=== PATIENT | male | born 1930 | race Caucasian/White ===

== ENCOUNTER 2016-11-26 12:26 | Day surgery (SDC) | payer MEDICARE, OTHER ==
[~2016-11-26] VITALS: Ht 177.8 cm; Wt 68.0 kg
[~2016-11-26 12:26] MED LIST: ASPI-973 PO; CA C1TAB29 PO; CALC600T12 PO; FINA5TAB9 PO; LISI-567 PO; PHN100C PO; Sodium Biphos-Phos 133 mL Enema RECTAL PRN; Sodium Chloride LOK Flush 10 mL Syringe IV PRN; fentaNYL-PF 50 mCg/mL 2 mL Inj IVPUSH PRN
[2016-11-26 12:54] VITALS: BP 151/77; PULSE 78; RESP 16; O2SAT 96
[2016-11-26] MEDS: 0.9% Sodium Chloride 1,000 ML IV SCH ×2 (13:09→13:20)
[2016-11-26 14:04] VITALS: BP 119/69; PULSE 67; RESP 15; O2SAT 97
[2016-11-26 14:12] VITALS: BP 114/65; PULSE 66; RESP 15; O2SAT 98
[2016-11-26 14:22] VITALS: BP 113/67; PULSE 68; RESP 15; O2SAT 94
--- NOTE | 2016-11-26 21:54 | ENDO ---
[address] [address] ENDOSCOPY PROCEDURE PATIENT: EVE SAWYER : 1930 MR#: [id number] ADMIT: 11/26/2016 JOB ID: [id number] DATE: 11/26/2016 PREPROCEDURE DIAGNOSIS: Right colon diffuse large B-cell lymphoma. POSTPROCEDURE DIAGNOSES: 1. Right colon diffuse large B-cell lymphoma, stenosis of the terminal ileal orifice. 2. Left-sided diverticulosis. PROCEDURE: 1. Colonoscopy with biopsies. 2. Attempted terminal ileoscopy. ENDOSCOPIST: Dr. Elliot Rowland. 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 He was treated with chemotherapy alone with a good clinical response. His most recent CT scan of the abdomen and pelvis in July 2016 shows some thickening of the terminal ileum which is new. No other new masses were seen or appreciated. He is otherwise in good health and not complaining of unplanned weight loss, abdominal pain, blood in his stool. After discussion of risks and benefits, he agreed to proceed with colonoscopy with biopsies. FINDINGS: There were left-sided diverticula. In the cecum, there was visible scarring from his treated disease. Initially, I thought I was looking at the appendiceal orifice, but there was a slight nodular or polypoid appearance of the tissue emanating from it, so when it was grasped with biopsy forceps, this revealed more of a lumen. I was unable to pass the colonoscope into the lumen. It was seen to be bubbling some gas and small amounts of liquid. DESCRIPTION OF PROCEDURE: Procedural sedation was achieved. The patient was connected to hemodynamic monitoring, pulse oximetry, capnography. After digital rectal exam, the PCF H 180 AL colonoscope was passed under visualization until the cecum was reached. As described above, I initially thought I was looking at the appendiceal orifice which looked like it had a small polyp emanating from it. Because of visible scarring from his treated lymphoma in the cecum, the anatomy was somewhat unusual, in that the ileocecal valve was not easily visible. Upon further interrogation of the area of the appendiceal orifice, it looked like this may actually be a stenotic terminal ileum. Attempts were made to intubate the area, which were unsuccessful, but there was gas and a small amount of liquid emanating from this orifice after it had been probed. The scope was then withdrawn carefully using circumferential tip motion. There are large-mouthed left-sided diverticula. Retroflexion revealed no other abnormalities in the rectum. The scope was withdrawn and the procedure terminated. RECOMMENDATIONS: Biopsies from the appendiceal orifice will be followed up on. He will follow up as scheduled with Dr. Ladd. Depending on biopsy results and his clinical status, I suggest that colonoscopy be repeated in one year's time.
--- NOTE | 2016-11-28 11:19 | PATH ---
SURGICAL PATHOLOGY Attending Physician:Charlie Leslie CASE STATUS: Signed Out PATIENT NAME: EVE SAWYER PID: [id number] : 1930 DATE COLLECTED:11/26/2016 00:00 SPECIMEN: Colon, Biopsy CLINICAL HISTORY: 1). APPENDICEAL ORIFICE FINAL DIAGNOSIS: Biopsy Appendiceal Orifice: Fragments of colon mucosa with prominent mucosal lymphoid aggregates. Negative for dysplasia and malignancy. ICD10 R10.9 GROSS DESCRIPTION: The specimen is received in one formalin filled container labeled with the patient's name, sublabeled "appendiceal orifice" and consists of 3 portions of tissue which aggregate to 0.2 x 0.2 x 0.2 CM. The specimen is entirely submitted in one cassette. 11/27/2016 [facility] ICD-9 CODES: CPT CODES: 1: 53648 Electronically Signed Out Mykel Boateng MD [facility] Pathology [facility] [address], [place] [address] Technical component performed at [facility], [facility] [address], [place], [address]
== END 2016-11-26 23:59 | disposition home or self-care (01) ==
LOC: END 12:26
PROVIDERS: ATTEND Student in an Organized Health Care Education/Training Program
DX: C83.39 Diffuse large B-cell lymphoma, extranodal and solid organ sites (principal); K56.69 Other intestinal obstruction; K57.30 Diverticulosis of large intestine without perforation or abscess without bleeding; I10 Essential (primary) hypertension; Z87.891 Personal history of nicotine dependence

== ENCOUNTER 2017-02-13 16:55 | Emergency (ER) | payer MEDICARE, OTHER ==
[~2017-02-13] VITALS: Ht 177.8 cm; Wt 66.4 kg
[~2017-02-13 16:55] MED LIST changes: -Sodium Biphos-Phos 133 mL Enema RECTAL PRN; -Sodium Chloride LOK Flush 10 mL Syringe IV PRN; -fentaNYL-PF 50 mCg/mL 2 mL Inj IVPUSH PRN
[2017-02-13 16:58] VITALS: BP 146/73; PULSE 74; RESP 15; O2SAT 98
[2017-02-13 18:02] VITALS: BP 133/76; PULSE 73; O2SAT 98
--- NOTE | 2017-02-13 18:11 | ED.REPORT ---
HPI-Trauma Minor / Fall Date of Service Feb 13, 2017 ED Provider: Mykel Ruiz MD Pt is an 86 year old male with a history of TIA who presents to the ED complaining of left forehead pain after a ground level fall. The pt tripped, causing his fall. He was seen at urgent care with concerns of a drooping left eyelid and was advised to come to the ER. He denies LOC, headache, vomiting, nausea, difficult walking, and any other injury. Pt also denies taking blood thinners. He reports that his last tetanus shot was 2 years ago. Nursing Notes Stated Complaint: FALL, FACIAL DROOP Chief Complaint: Multiple Trauma/Fall Nursing Notes Reviewed: Yes Allergies: Coded Allergies: No Known Allergies (Verified , 02/13/17) Scheduled Aspirin (Aspirin) 81 Mg Tablet 81 MG PO DAILY Ca Cmb 1/Vit D3/B-6/FA/B12/Av (Vitamin D3-Aloe 1,000 Unit Tab) 1 Each Tablet 1 EACH PO DAILY Calcium Carbonate (Calcium) 600 Mg Tablet 600 MG PO DAILY Finasteride (Finasteride) 5 Mg Tablet 5 MG PO DAILY Lisinopril (Lisinopril) 20 Mg Tablet 20 MG PO DAILY Phenytoin Sodium ER (Dilantin) 100 Mg Capsule 300 MG PO DAILY General Time Seen by MD: 18:09 Chief Complaint Fall Hx Obtained From: Patient Arrived By: Walk-in Onset Occurred: Onset unknown Symptom Duration: Since onset Location: Head Quality: Painful Severity: Current: Moderate Severity: Maximum: Moderate Context: Immunizations Tetanus up to date Recent Healthcare: No recent doctor visit, No recent hospitalization Similar Sx Previous: No Past Medical History Past Medical History Notes: Currently 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 Past Medical History Lymphoma (Currently on chemo, Jul 2015) CVA Reports: Transient ischemic attack, Denies: Congestive heart failure, Diabetes mellitus, Hypertension Past Surgical History Shoulder Smoking History Former Smoker Social History Alcohol Use: "Social" Drug Use: Denies drug use Other Social History: Good social support, Ambulatory Status Independent Review of Systems + Head pain Musculoskeletal: Denies: Back pain, Neck pain Neurologic: Denies: Change LOC, Headache Complete sys rev & neg: except as marked. Cardiovascular: Denies: Chest pain GI: Denies: Nausea, Vomiting Physical Exam Initial Vital Signs Vital Signs (First) Date Time Temp Pulse Resp B/P Pulse Ox O2 Delivery O2 Flow Rate FiO2 02/13/17 16:58 36.6 74 15 146/73 98 Room Air Initial VS: Reviewed Respiratory: Breath sounds normal, Clear to auscultation, No respiratory distress Cardiovascular: Regular rate & rhythm, Heart sounds normal, Intact distal pulses Extremities: Vascular intact, Neuro intact Skin: Warm, Dry Neurologic: Alert, Oriented, Nonfocal Psychiatric: Mood/affect normal, Behavior normal General/Constitutional: Awake, Alert, Cooperative Neck: Supple, Non-tender Head / Eyes: PERRL, EOMI V-shaped laceration just above the left eyebrow. Orbital ecchymosis. Swelling to the left eyelid. Interpretation & Diagnostics CT Head Interpretation IMPRESSION: 1. No acute intracranial abnormalities. 2. 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 3. Mild cerebral volume loss and chronic microvascular ischemic changes. Dictated by: Mamta Buckley M.D. on 02/13/2017 at 18:32 Study: Head CT no contrast Interpretation / Wet Read by: Interpret - Radiologist Procedures Laceration Management Laceration Management: Left forehead laceration Procedure Performed by: Allied health pract (JASEN Torre) Consent / Setup / Site Prep: Consent from patient, Hand hygiene observed, Stand sterile technique Wound Length: 2 cm Local Anesthesia: Lidocaine w epi 1%, 3cc, 27g needle Wound Preparation: Hibiclens - Chlorhexidine, Normal saline Debridement: None Irrigation: 250 cc Foreign Body Explore / Removal: Explored for foreign body Repair Skin: Prolene (6-0) # Sutures - Skin: 4 Closure Layers: 1 Suture Technique: Simple Post-Procedure / Complications: Antibiotic oint applied, Dressing applied, No complications, Condition improved, Tolerated procedure well, Patient stable Re-Eval/Medical Decision Source of Hx: Old records Re-Evaluation/Progress : Time of Eval: 20:08 Patient Status: Condition improved Re-Evaluation/Progress Note: Pt rechecked. Informed pt of plan for discharge. Pt understands and agrees with plan for discharge. F/U instructions and RTER warnings given. All questions addressed. Counseled Regarding: Diagnosis, Need for follow-up, When/why to return to ED Discharge & Departure Impression: Primary Impression: Fall from ground level Additional Impression: Laceration Disposition: Home Discharge Condition All VS Reviewed: Yes Condition: Stable Patient Instructions: Acute Wounds (ED) Additional Instructions: Emergency department evaluation today included interview, examination and CT brain. A forehead laceration was sutured. Keep the wound covered with antibiotic ointment, may apply a Band-Aid. Return in 5 days for removal of stitches, return immediately if her having problems with the wound such as redness swelling or increased pain. Expect to have some increased bruising in the face which may likely tracked down anterior cheek. No serious injury is identified on brain CT today, however it is still possible to have delayed bleeding so if you experience headache nausea vomiting unsteadiness on her feet or any other change in mental status over the next few days return to emergency department immediately. Thanks for dressing is with your care today Referrals: Thomas Galvan MD (PCP) Scribe Attestation Portions of this note were transcribed by Aurbee Louis. I, Dr. Ruiz personally performed the history, physical exam and medical decision-making; I reviewed and confirmed the accuracy of the information in the transcribed note. Signed by : Erich Meadows, 02/13/17 and 19:50. copies to: Thomas Galvan MD, Donald L MD Feb 13, 2017 18:10 Aubree Rudd Feb 13, 2017 18:14 Star Sosa PA-C Feb 13, 2017 19:38
--- NOTE | 2017-02-13 18:37 | DRSVH ---
PROCEDURE: CT BRAIN WITHOUT CONTRAST ([id number]) INDICATIONS: 86-year-old male with head injury with ground level fall. TECHNIQUE: Noncontrast 4.5 mm thick angled axial sections acquired from the foramen magnum to the vertex, with c oronal reformats. COMPARISON: None. FINDINGS: Image quality: Excellent. CSF spaces: Basal cisterns are patent. No extra-axial fluid collections. The ventricles are symmet karla in size and shape. Brain: There is a large, old left MCA infarct with encephalomalacia in the left frontoparietal lobe. There is a lacunar infarct in the right basal ganglia. No intracranial bleeds or masses. There is m ild cerebral volume loss for age, with resultant ventricular and sulcal prominence. There are mild p eriventricular and deep white matter chronic small vessel ischemic changes. There is intracranial in ternal carotid artery atherosclerosis. Skull and face: Calvarium and visualized facial bones appear intact, without suspicious lesions. Sinuses: Visualized sinuses and mastoids are clear. IMPRESSION: 1. No acute intracranial abnormalities. 2. 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 3. Mild cerebral volume loss and chronic microvascular ischemic changes. Dictated by: Mamta Buckley M.D. on 02/13/2017 at 18:32 Approved by: Mamta Buckley M.D. on 02/13/2017 at 18:35
[2017-02-13 19:38] VITALS: BP 145/63; PULSE 85; O2SAT 98
[2017-02-13 20:14] VITALS: BP 145/63; PULSE 85; O2SAT 98
== END 2017-02-13 20:15 | disposition home or self-care (01) ==
LOC: SED 16:55
DX: S01.81XA Laceration without foreign body of other part of head, initial encounter (principal); S05.12XA Contusion of eyeball and orbital tissues, left eye, initial encounter; W01.0XXA Fall on same level from slipping, tripping and stumbling without subsequent striking against object, initial encounter; Y93.89 Activity, other specified; Y92.89 Other specified places as the place of occurrence of the external cause; Y99.8 Other external cause status; C85.90 Non-Hodgkin lymphoma, unspecified, unspecified site; Z86.73 Personal history of transient ischemic attack (TIA), and cerebral infarction without residual deficits; Z79.82 Long term (current) use of aspirin; Z87.891 Personal history of nicotine dependence
CPT/HCPCS: 12011; 70450; 99284; G0463

== ENCOUNTER 2017-03-06 11:50 | Inpatient (IN) | payer MEDICARE, OTHER ==
[~2017-03-06] VITALS: Ht 177.8 cm; Wt 63.6 kg
[2017-03-06 11:54] VITALS: BP 164/85; PULSE 82; RESP 12; O2SAT 97
--- NOTE | 2017-03-06 12:00 | ED.REPORT ---
HPI-Abd Pain M 40 and Over Date of Service Mar 06, 2017 ED Provider: Jeffrey Hunter DO The patient is an 86 year old male with history of lymphoma, prior stroke, and seizures, who presents to the emergency department complaining of bloody emesis that began this morning. The patient states he vomited 4 times this morning and noticed chunks of blood in the emesis. He also noticed some lower abdominal pain. He did not eat breakfast this morning. The patient brought a sample of the emesis for us that does not appear to be digested blood. He denies constipation, black or bloody stools, dysuria, chest pain, shortness of breath, fever or chills. He is still able to pass gas. No one else at home has been sick. Nursing Notes Stated Complaint: VOMITING BLOOD Chief Complaint: Male Abdominal Pain Nursing Notes Reviewed: Yes Allergies: Coded Allergies: No Known Allergies (Verified , 02/13/17) Scheduled Aspirin (Aspirin) 81 Mg Tablet 81 MG PO DAILY Ca Cmb 1/Vit D3/B-6/FA/B12/Av (Vitamin D3-Aloe 1,000 Unit Tab) 1 Each Tablet 1 EACH PO DAILY Calcium Carbonate (Calcium) 600 Mg Tablet 600 MG PO DAILY Finasteride (Finasteride) 5 Mg Tablet 5 MG PO DAILY Lisinopril (Lisinopril) 20 Mg Tablet 20 MG PO DAILY Phenytoin Sodium ER (Dilantin) 100 Mg Capsule 300 MG PO DAILY General Time Seen by MD: 12:00 Chief Complaint Other (vomiting blood) Hx Obtained From: Patient, Spouse Arrived By: Walk-in Sudden in Onset?: Yes Onset Occurred: 5 - 8 hours ago Symptom Duration: Intermittent Progression since Onset: Intermittent Location: : Abdomen lower Quality: Painful Severity: Current: Mild Severity: Maximum: Moderate Recent Healthcare: No recent doctor visit, No recent hospitalization Similar Sx Previous: No Past Medical History Past Medical History Lymphoma CVA Hx of seizures Past Surgical History Shoulder Family History Noncontributory Smoking History Former Smoker Social History Alcohol Use: "Social" Drug Use: Denies drug use Other Social History: Good social support, , Local resident Ambulatory Status Independent Review of Systems Constitutional: Denies: Chills, Fever Respiratory: Denies: Shortness of breath Cardiovascular: Denies: Chest pain GI: Reports: Abdominal pain, Hematemesis, Nausea, Vomiting, Denies: Bloody/tarry stool, Constipation, Hematochezia, Melena Male: Denies Dysuria Complete sys rev & neg: except as marked. Physical Exam Initial Vital Signs Vital Signs (First) Date Time Temp Pulse Resp B/P Pulse Ox O2 Delivery O2 Flow Rate FiO2 03/06/17 11:54 36.0 82 12 164/85 97 Room Air Initial VS: Reviewed Head / Eyes: Atraumatic, Normocephalic, PERRL ENT: Mucous membranes moist, Conjunctiva normal, No scleral icterus Neck: Supple, Non-tender, Full range of motion Lymphatic: No lymphadenopathy Extremities: Vascular intact, Neuro intact, No swelling, No tenderness Skin: Warm, Dry, No cyanosis Neurologic: Alert, Oriented, Nonfocal Psychiatric: Mood/affect normal, Behavior normal, Normal thought content General/Constitutional: Awake, Alert, No acute distress, Cooperative Appearance / Presentation: Positive: Frail Hard of hearing. Respiratory / Chest: Atraumatic, Breath sounds NL, Breath sounds = bilat, No respiratory distress, No rales, No rhonchi, No wheezing Cardiovascular: Heart rate NL, Regular rhythm, Heart sounds NL, No gallop, No murmurs, No rubs, Peripheral circulation NL Abdomen: Soft, No guarding, No rebound, BS normoactive, No hernia, No palpable mass, No pulsatile mass Moderate abdominal distention with diffuse tenderness. Back: Inspection NL, Non-tender, No CVA tenderness Interpretation & Diagnostics Gastroccult positive Lab Results Interpretation Result Diagram: 03/06/17 1350 03/06/17 1250 Test 03/06/17 12:50 03/06/17 13:50 03/06/17 16:27 White Blood Count 8.3th/mm3 (3.8-10.1) Red Blood Count 4.45mil/mm3 (4.40-5.80) Mean Corpuscular Volume 100.0fL (81-100) Mean Corpuscular Hemoglobin 32.6pg (27.0-35.0) Mean Corpuscular Hemoglobin Concent 32.6% (32.0-37.0) Red Cell Distribution Width 13.9% (12.3-15.4) Platelet Count 132bil/L (150-400) Neutrophils (%) (Auto) 90.5% (40-74) Lymphocytes (%) (Auto) 3.9% (14-46) Monocytes (%) (Auto) 5.3% (4-12) Eosinophils (%) (Auto) 0.1% (0-5) Basophils (%) (Auto) 0.1% (0-3) Prothrombin Time 10.6sec (8.1-12.5) Prothromb Time International Ratio 0.99ratio Sodium Level 140mEq/L (134-144) Potassium Level 4.7mEq/L (3.5-5.2) Chloride Level 102mEq/L (97-108) Carbon Dioxide Level 23mmol/L (18-29) Blood Urea Nitrogen 16mg/dL (8-27) Creatinine 0.66mg/dL (0.76-1.27) Estimat Glomerular Filtration Rate 122mL/min (>59) Glucose Level 192mg/dL (60-99) Calcium Level 9.5mg/dL (8.5-10.1) Magnesium Level 2.0mg/dL (1.6-2.6) Total Bilirubin 0.4mg/dL (0.0-1.2) Aspartate Amino Transf (AST/SGOT) 20U/L (0-50) Alanine Aminotransferase (ALT/SGPT) 13U/L (0-44) Alkaline Phosphatase 105U/L (25-160) Total Protein 7.0g/dL (6.4-8.4) Albumin 4.3g/dL (3.4-5.0) Procalcitonin 0.06ng/mL (0.00-0.08) Phenytoin (Dilantin) Level 8.1uG/mL (10.0-20.0) Hemoglobin 13.3g/dL (13.8-17.2) Hematocrit 41.6% (41.0-50.0) Urine Color Yellow (YELLOW) Urine Appearance Clear (CLEAR,HAZY) Urine pH 5.5 (5.0-8.0) Urine Specific [place] 1.015 (1.003-1.035) Urine Protein Negativemg/dL (NEG,TRACE) Urine Glucose (UA) Negativemg/dL (NEGATIVE) Urine Ketones 15mg/dL (NEGATIVE) Urine Occult Blood Small (NEGATIVE) Urine Nitrite Negative (NEGATIVE) Urine Bilirubin Negative (NEGATIVE) Urine Urobilinogen Normalmg/dL (NORMAL) Urine Leukocyte Esterase Negative (NEGATIVE) Urine RBC 11-50/hpf (0-2) Urine WBC 0-5/hpf (0-5) Urine Epithelial Cells Few/hpf (NONE-MOD) Urine Crystals None seen (NONE SEEN) Urine Bacteria Few/hpf (NONE-FEW) Urine Hyaline Casts None/lpf (NONE) Urine Granular Casts None seen (NONE SEEN) Urine Waxy Casts None seen (NONE SEEN) Urine Red Blood Cell Casts None seen (NONE SEEN) Urine White Blood Cell Casts None seen (NONE SEEN) Urine Mucus Present (None Seen) Urine Trichomonas None seen (NONE SEEN) Urine Yeast None (NONE SEEN) Urinalysis Comment None Urine Culture Reflexed Not indicated ECG Interpretation ECG Interpretation: Sinus rhythm LBBB Time: 12:45 Interpreted by: ED physician CT Abd / Pelvis Interpretation IMPRESSION: 1. Segmental wall thickening of the sigmoid colon consistent with a nonspecific colitis, likely infectious or inflammatory in etiology. 2. Fluid distention of the colon proximal to this segment as well as distention of the distal small bowel compatible with a functional obstruction. A short segment stricture within the involved small bowel segment raises the possibility of inflammatory bowel disease. Dictated by: Dontrell Beard M.D. on 03/06/2017 at 15:08 Study type: Abdominal CT IV contrast, Abdom CT oral contrast Interpretation / Wet Read by: Interpret - Radiologist Re-Eval/Medical Decision Med Decision/Clinical Course Colitis of unclear etiology with associated functional bowel obstruction. Patient will be admitted. IV Zosyn given forr possible infectious process. Source of Hx: Old records, Family Time of Eval: 15:53 Re-Evaluation/Progress Note: Rechecked the patient. Discussed plan for admission. All questions were addressed. Consultation #1: Referral / Consult Name: Varun So MD Consulted With: Hospitalist Requested Call at: 15:53 Call Returned at: 17:19 Corporate Claims Examiner: Will see patient, Agrees with eval, Agrees with plan, Accepts admit Note: Spoke with the resident about the patient's case. She would like surgery consulted. Dr. So is the attending physician on the case. Consultation #2: Consulted With: Hospitalist Requested Call at: 17:20 Call Returned at: 17:30 Note: The resident will consult surgery. Counseled Regarding: Diagnosis, Lab results, Need for admission Discharge & Departure Primary Impression: GI bleed GI bleed type/associated pathology: unspecified gastrointestinal hemorrhage type Qualified Code: K92.2 - Gastrointestinal hemorrhage, unspecified Additional Impressions: Colitis Bowel obstruction Intestinal obstruction type: unspecified Qualified Code: K56.60 - Unspecified intestinal obstruction Disposition: ADMITTED TO HOSPITAL Vital Signs - All Vital Signs Date Time Temp Pulse Resp B/P Pulse Ox O2 Delivery O2 Flow Rate FiO2 03/06/17 17:25 36.7 70 20 114/64 98 Room Air 03/06/17 14:27 71 24 133/66 99 Room Air 03/06/17 12:53 74 24 144/79 98 Room Air 03/06/17 11:54 36.0 82 12 164/85 97 Room Air )( All Prior VS Reviewed: Yes Condition: Stable Referrals: Thomas Galvan MD (PCP) Scribe Attestation Portions of this note were transcribed by Olya Roche. I, Dr. Hunter personally performed the history, physical exam and medical decision-making; I reviewed and confirmed the accuracy of the information in the transcribed note. Signed by: Erich Villarreal, 03/06/17 at 1738. copies to: Thomas Galvan MD, Timothy S DO Mar 06, 2017 12:00 Olya Roche Mar 06, 2017 12:11
[2017-03-06] MEDS ORDERED: 0.9% Sodium Chloride 1,000 ML IV ONE (12:20)
[2017-03-06] MEDS ORDERED: Ondansetron 2 mg/mL 2 mL Inj IVPUSH PRN ×3 (12:20→17:45)
[2017-03-06] MEDS ORDERED: Famotidine Inj 20 MG in IV Premix 1 EACH IV ONE (12:20)
[2017-03-06 12:53] VITALS: BP 144/79; PULSE 74; RESP 24; O2SAT 98
[2017-03-06 13:03] LABS: BASOPHILS % (AUTO) 0.1 % (0-3); EOSINOPHILS % (AUTO) 0.1 % (0-5); MONOCYTES % (AUTO) 5.3 % (4-12); Mean Corpuscular Hemoglobin 32.6 pg (27.0-35.0); NEUTROPHILS % (AUTO) 90.5 % (40-74); Platelet Count 132 bil/L (150-400)
[2017-03-06 13:19] LABS: INR 0.99 ratio
[2017-03-06] MEDS ORDERED: Iohexol 300 mg/mL 30 mL Inj PO ONE (13:20)
[2017-03-06] MEDS ORDERED: Pantoprazole 4 mg/mL 10 mL Inj IVPUSH ONE (14:00)
[2017-03-06 14:27] VITALS: BP 133/66; PULSE 71; RESP 24; O2SAT 99
--- NOTE | 2017-03-06 15:44 | DRSVH ---
PROCEDURE: CT ABDOMEN AND PELVIS WITH CONTRAST ([id number]) INDICATIONS: Abdominal pain, mild distention, vomiting TECHNIQUE: After the administration of oral and intravenous contrast, 5 mm thick sections acquired from the diap hragms to the symphysis. 5 mm thick coronal and sagittal reformats were performed. For radiation do se reduction, the following was used: automated exposure control, adjustment of mA and/or kV accordi ng to patient size. COMPARISON: [facility], CT, CT CHEST ABD PELVIS W CON, 08/11/2016, 16:21. [facility], CT, CT ABD PELVIS W CON, 02/26/2016, 11:46. FINDINGS: Image quality: Excellent. ABDOMEN: Lung bases: Lung bases are clear. There is a small hiatal hernia. Heart size is normal. Solid organs: There are a few scattered hepatic cysts. Gallbladder appears within normal limits with out calcified gallstones. Biliary system is non-dilated. Pancreas enhances normally. No adrenal no dules. Kidneys are normal in size and enhancement, without hydronephrosis. Peritoneum and bowel: There is segmental wall thickening in the sigmoid colon consistent with a nons pecific colitis. This may be secondary to diverticulitis given the presence of diverticulosis. Ther e is associated fluid distention of the colon proximal to the segment with fluid distention also demo nstrated in the distal small bowel. There is a short segment stricture also demonstrated between the dilated bowel loops on series 2 image 55. The proximal small bowel is nondistended in the right upp er quadrant. There is a small amount of free fluid in the abdomen. No free air. Nodes and vessels: No retroperitoneal or mesenteric adenopathy. Aorta and inferior vena cava are no rmal in caliber. Miscellaneous: No ventral hernias. PELVIS: Genitourinary: Bladder wall thickness is normal. There is prominent distention of the urinary bladd er. The prostate demonstrates nonspecific enlargement. Miscellaneous: There is a small amount of free fluid within a small left inguinal hernia. Bones: No suspicious bony lesions. No vertebral body compression fractures. IMPRESSION: 1. Segmental wall thickening of the sigmoid colon consistent with a nonspecific colitis, likely infe ctious or inflammatory in etiology. 2. Fluid distention of the colon proximal to this segment as well as distention of the distal small bowel compatible with a functional obstruction. A short segment stricture within the involved small bowel segment raises the possibility of inflammatory bowel disease. Dictated by: Dontrell Beard M.D. on 03/06/2017 at 15:08 Approved by: Dontrell Beard M.D. on 03/06/2017 at 15:42
[2017-03-06] MEDS ORDERED: Heparin 5,000 Unit/mL Inj IVPUSH ONE (15:55)
[2017-03-06] MEDS ORDERED: Heparin 25K Unit/500mL 0.45 NS 25,000 UNIT in IV Premix 1 EACH IV ONE (15:55)
[2017-03-06] MEDS ORDERED: 0.9% Sodium Chloride 1,000 ML IV SCH ×2 (16:05→17:24)
[2017-03-06] MEDS ORDERED: Piperacillin-Tazo 3.375 Gm Inj 3.375 GM in Dextrose 5% Minibag Plus 50 ML IV ONE (16:05)
[2017-03-06 17:02] LABS: APPEARANCE,URINE CLEAR (CLEAR,HAZY); COLOR,URINE YELLOW (YELLOW); PH,URINE 5.5 (5.0-8.0)
[2017-03-06 17:03] LABS: OCCULT BLOOD,URINE SMALL (NEGATIVE); UROBILINOGEN,URINE NORMAL (NORMAL)
[2017-03-06 17:25] VITALS: BP 114/64; PULSE 70; RESP 20; O2SAT 98
[2017-03-06] MEDS ORDERED: Alum-Mag Hydrox-Simeth 30 mL Suspension PO PRN ×2 (17:25→17:45)
[2017-03-06] MEDS ORDERED: Polyethylene Glycol (PEG) 17 Gm Powder PO PRN (17:45)
--- NOTE | 2017-03-06 18:50 | NUR ---
admitted to room 1003 from ER alert, oriented, VSS, denies nausea or abd pain, but pt is guarding abd. Ambulatory with SBA
[2017-03-06 19:01] VITALS: BP 133/65; PULSE 69; RESP 16; O2SAT 97
--- NOTE | 2017-03-06 19:36 | PCM.HPMED ---
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 Patient states that he has had 4 episodes of emesis [id number] and all of them contained "chunks of blood." The patient denies any diarrhea, melena, hematochezia, fevers or chills. He has not had any episodes of emesis since this morning. The patient denies any dizziness or chest pain. The patient most recently saw his oncologist Dr. Ladd last month for continue surveillance of his lymphoma. Patient had previously underwent a CT scan in July 2016. He had a repeat colonoscopy a couple months ago by Dr. Rowland. There was no significant abnormality, but the terminal ileum could not be accessed. The biopsies from the cecum were negative. The plan was to repeat CT of chest abdomen and pelvis this month for ongoing surveillance. In the ED the patient's vitals were notable for 164/85. CT of his abdomen was notable for colitis. He was given Zosyn, given 1 L of NS, 80 mg of IV Protonix push, and Zofran. The patient was then admitted to the hospitalist service for further evaluation and treatment. Review of Systems: General: The patient has no fever, no chills and no diaphoresis. HEENT: Patient has no headache, patient has no diplopia, patient has no changes in vision. Patient has no problems with their ears, nose or throat. Patient has no known dental problems. Patient has no pharyngitis or history of thrush. Neck: Patient has no stiffness in the neck. Patient has no lymphadenopathy. Patient has no other problems with their neck. Pulmonary: Patient has no shortness of breath, no cough, no expectoration of sputum. Patient has no pleurisy. Patient has no chest pain. Patient has no history of asthma or COPD. Cardiovascular: Patient has no chest pain. Patient has no history of heart murmur. Patient has no palpitations. Patient has no history of myocardial infarction. Patient has no history of coronary artery disease. Gastrointestinal: Patient has no history of hepatitis A, B or C. Patient has no history of peptic ulcer disease. Patient has no history of gastroesophageal reflux disease. Patient has had some nausea and vomiting prior to admission. However, patient has not been having diarrhea. Patient has no history of hematemesis, hematochezia, or melena. Patient has no history of colitis. Renal: Patient has no history of kidney disease. No history of kidney stones. Genitourinary: Patient has no history of dysuria, frequency, or incontinence. Patient has no previous history of genitourinary problems. Musculoskeletal: Patient has no history of muscular skeletal problems. Neurologic: Patient has no history of stroke, no history of seizure, no history of TIA. Psychiatric: Patient has no history of psychiatric problems. The remainder of the entire review of systems was reviewed with patient and is as mentioned above otherwise negative. Allergies Coded Allergies: No Known Allergies (Verified , 02/13/17) Home Medications CarnesKyung [id number] 1930 12/25/2016 11:00 AM Page: 08/27 Start Date Medication Directions Stop Date Aspir-81 81 mg tablet,delayed release take 1 tablet by oral route every day Dilantin Extended 100 mg capsule take 3 Capsule by oral route 2 times every day lisinopril 20 mg tablet take 1 tablet by oral route every day 11/25/2016 Suprep Bowel Prep Kit 17.5 gram-3.13 gram-1.6 gram oral solution begin first half of prep at 6pm today and second half at 6am tomorrow morning per instructions. [facility] Lymphoma Stroke with residual expressive dysarthria Seizure disorder diagnosed 10 or 11 years ago Hypertension Hyperlipidemia Colonoscopy with diffuse B-cell lymphoma BPH Left inguinal hernia, which has been followed by Dr. Rowland who does not believe patient needs surgery at this time. Surgical History Port placement and retrieval History of tonsillectomy History of all of his teeth being removed History of shoulder surgery Family History Family history of congestive heart failure. Social History Hx Alcohol Use: Yes (occasionally) Hx Substance Use: No Hx Tobacco Use: Yes Smoking Status: Former Smoker (The patient smoked a pipe years ago.) Living Arrangement: with Family Additional Information The patient was born in [place] and with eyes: [place]. 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 Patient lives in [place], [place]. He lives with his second , who he has been to for 25 years. He is to his first for many years and had 3 children. His then of cancer. He then his neighbor who had lost her and again they have been for 25 years now. Exam Vital Signs Vital Sign - Last Date Time Temp Pulse Resp B/P Pulse Ox O2 Delivery O2 Flow Rate FiO2 03/06/17 14:27 71 24 133/66 99 Room Air 03/06/17 11:54 36.0 Exam General: No acute distress, well-developed, well-nourished, appropriately interactive HEENT: Normocephalic, atraumatic. External ears without defect. Pupils equal, round, and reactive to light and accommodation. Anicteric sclerae, moist conjunctivae, and no lid lag. Oropharynx free of erythema and cobble stoning with moist mucosa. Neck: Supple with full range of motion. No jugular venous distension. No lymphadenopathy or thyromegaly. Cardiovascular: Regular rate and rhythm with a grade 1/6 diastolic murmur appreciated. Pulmonary: Clear to auscultation bilaterally with no crackles, wheezes, or rhonchi. Normal respiratory effort with no use of accessory muscles. Abdomen: Bowel tones present. Soft, nontender, nondistended. No hepatosplenomegaly or masses appreciated. Extremities: No clubbing, cyanosis, edema, or lymphadenopathy appreciated. He has a hammertoe on the right foot Skin: Normal temperature, turgor, and texture; no rash, ulcers, or subcutaneous nodules appreciated. Neurological: Cranial nerves grossly intact. Normal muscle strength, tone, and bulk. Psychiatric: Normal mood and affect. Alert and oriented to person, place, and time. Slow to answer questions. Lab and Diagnostics Result Diagram: 03/06/17 1350 03/06/17 1250 X-Rays, CTs and MRIs CT ABDOMEN AND PELVIS WITH CONTRAST IMPRESSION: 1. Segmental wall thickening of the sigmoid colon consistent with a nonspecific colitis, likely infectious or inflammatory in etiology. 2. Fluid distention of the colon proximal to this segment as well as distention of the distal small bowel compatible with a functional obstruction. A short segment stricture within the involved small bowel segment raises the possibility of inflammatory bowel disease. ADDENDUM: Given the length of segmental wall thickening in the sigmoid colon, and neoplasm is less likely but cannot be excluded due to the degree of obstruction. Consider followup evaluation with colonoscopy. Dictated by: Dontrell Beard M.D. 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 Functional obstruction of the sigmoid colon with associated colitis, present on admission, active -Differential includes infectious etiology as well as a recurrent neoplasm -Was given a dose of Zosyn in the ER for presumed infection however patient is afebrile, has a normal white count, and a negative for procalcitonin, so at this time we will not continue antibiotics. -Keep patient nothing by mouth -IV fluids -Surgical consult tomorrow Possible upper GI bleed, present on admission, active -Continue To monitor H&H -Continue IV Protonix twice a day push -Nothing by mouth -Consider GI consultation tomorrow Seizure disorder, present on admission, active -Convert Dilantin to fosphenytoin patient is nothing by mouth CODE STATUS: DNR/DNI Patient is admitted under inpatient status with expected length of stay greater than 2 midnights due to severity of presenting symptoms, risk of adverse event, and complexity of treatment plan. Pain Evaluation: Adequate Pain Control GI Prophylaxis: Proton Pump Inhibitor VTE Prophylaxis: Sub-Q Heparin (Unfractionated) Resuscitation Status: DNR/DNI:Do Not Resuscitate/Intubate Kalee Meier DO Mar 06, 2017 17:21 Varun So MD Mar 06, 2017 22:17
[2017-03-06] MEDS ORDERED: Fosphenytoin Inj 300 mgPE in 0.9% Sodium Chloride 50 ML IV ONE (19:40)
[2017-03-06 21:40] VITALS: BP 134/74; PULSE 67; RESP 20; O2SAT 96
[2017-03-07 00:11] VITALS: BP 139/71; PULSE 64; RESP 17; O2SAT 94
[2017-03-07] MEDS ORDERED: Fosphenytoin 50 mgPE/mL 2 mL Inj IV SCH ×2 (00:30→08:30)
[2017-03-07] MEDS ORDERED: Heparin 5,000 Unit/mL Inj SUBQ SCH (00:30)
[2017-03-07] MEDS: 0.9% Sodium Chloride 1,000 ML IV SCH ×4 (03:42→23:42)
--- NOTE | 2017-03-07 03:55 | NUR ---
Activity On initial assessment, patient alert and oriented x3 with some delay in speech from prior stroke. Patient incontinent with urine. Dropped urinal on floor. Patient in brief with pad and using urinal . No complaints of pain. VSS. Patient NPO. Call light within reach. Care continues.
[2017-03-07 05:53] VITALS: BP 137/78; PULSE 68; RESP 17; O2SAT 93
[2017-03-07 06:19] LABS: BASOPHILS % (AUTO) 0.2 % (0-3); EOSINOPHILS % (AUTO) 0.9 % (0-5); MONOCYTES % (AUTO) 12.6 % (4-12); Mean Corpuscular Hemoglobin 32.3 pg (27.0-35.0); Mean Corpuscular Volume 101.1 fL (81-100); Platelet Count 122 bil/L (150-400)
--- NOTE | 2017-03-07 06:44 | NUR ---
Lab Results Patients Hemoglobin 11.7, hematocrit 37.0
[2017-03-07] MEDS ORDERED: Pantoprazole 4 mg/mL 10 mL Inj IVPUSH SCH (07:30)
--- NOTE | 2017-03-07 09:20 | NUR ---
Fosphenytoin Called pharmacy to request information regarding administration of IV fosphenytoin. Prior dose was mixed by pharmacy, but [facility] has only vials of this medication. Verified to pharmacist that pt is not on fluid restrictions. Medication is prescribed for prevention of seizures, and pt has been taking dilantin prior to admission. Pharmacist will research further and likely will mix medication and send it up to floor.
[2017-03-07 09:30] LABS: APPEARANCE,URINE CLEAR (CLEAR,HAZY); COLOR,URINE STRAW (YELLOW); OCCULT BLOOD,URINE LARGE (NEGATIVE); UROBILINOGEN,URINE NORMAL (NORMAL)
[2017-03-07 10:07] VITALS: BP 154/76; PULSE 66; RESP 16; O2SAT 94
[2017-03-07] MEDS: SODIUM CHLORIDE IV SCH ×4 (10:32→17:45)
[2017-03-07] MEDS: FOSPHENYTOIN IV SCH ×4 (10:32→17:45)
--- NOTE | 2017-03-07 12:01 | CONS ---
[address] [address] CONSULTATION REPORT PATIENT: EVE SAWYER : 1930 MR#: [id number] ADMIT: 03/06/2017 JOB ID: [id number] DATE OF SERVICE: 03/07/2017 CHIEF COMPLAINT: Vomiting. HISTORY OF PRESENT ILLNESS: The patient is well known to me from his history of diffuse large B-cell lymphoma involving the terminal ileum and cecum. He was originally diagnosed in March of 2015. He had a large bulky tumor and was treated successfully initially with chemotherapy. He was then treated with consolidative radiation to the right lower quadrant, which he completed in December of 2015. He last underwent colonoscopy by myself in November of 2016. I could not intubate the terminal ileum and there was a polypoid tissue emanating from the area, and biopsies showed prominent lymphoid aggregates, but no discrete evidence of lymphoma or other malignancy. The patient was then admitted to the hospitalist service yesterday after he presented with several bouts of emesis which contained some blood. He was also distended and had decreased bowel movement compared to his normal baseline. He had not had any blood in his stool. Today he feels much better with no abdominal pain and no nausea. He still has not passed flatus or had significant bowel movement. His other active complaint is that he has been passing blood in his urine. Urinalysis showed a large amount of occult blood, but was otherwise negative and culture was not indicated. PAST MEDICAL HISTORY: 1. A stroke with expressive aphasia and dysarthria. 2. Seizure disorder. 3. Hypertension. 4. Hyperlipidemia. 5. Diffuse large B-cell lymphoma. 6. Benign prostatic hypertrophy. 7. Left inguinal hernia. PAST SURGICAL HISTORY: 1. Tonsillectomy. 2. Shoulder surgery. 3. Port placement. MEDICATIONS: Home medicines include: 1. Lisinopril. 2. Aspirin 81 mg. 3. Phenytoin. 4. Calcium carbonate. 5. Multivitamin. 6. Finasteride. ALLERGIES: No known drug allergies. SOCIAL HISTORY: He is a former smoker of a pipe, occasionally drinks alcohol and denies illicit drug use. FAMILY HISTORY: Congestive heart failure. REVIEW OF SYSTEMS: A 10-point review of systems is negative except as described in history of present illness. He denies unplanned weight loss. PHYSICAL EXAMINATION: Body mass index 20.1. Temperature 36.7, pulse 66, blood pressure 154/76, saturation 94% on room air. In general, he is resting in bed in no acute distress. HEENT: Sclerae are anicteric. Mucous membranes are moist. Neck: No lymphadenopathy. No jugular venous distention. Chest is clear. Heart: Regular rate and rhythm. No murmurs. Abdomen is soft, mildly distended. He is nontender to palpation. Bowel tones are present. There is no rebound tenderness, and no palpable mass. Extremities: No edema. Neuro: Stable expressive aphasia. LABORATORIES: White count is 4.2, hematocrit 36.6, platelets 122. Creatinine 0.62, glucose 106, albumin 3.4, procalcitonin 0.06. IMAGING: CT of the abdomen with contrast shows segmental wall thickening of the sigmoid colon, consistent with a nonspecific colitis. There is a small amount of free fluid in the abdomen. There is a short-segment stricture between dilated bowel loops. ASSESSMENT AND PLAN: An 86-year-old man with a history of right colon and terminal ileum diffuse large B-cell lymphoma status post chemotherapy and consolidative radiation therapy. He is now admitted with vomiting, abdominal distention, and CT scan findings suggestive of short segment colitis. I do not think he has a true bowel obstruction. 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 I recommend conservative treatment with nothing by mouth until he is passing some flatus or having bowel movement, IV fluids, minimizing narcotics. I will continue to follow him. I think it is unlikely that he will require surgical intervention.
[2017-03-07 14:40] VITALS: BP 143/83; PULSE 72; RESP 16; O2SAT 98
--- NOTE | 2017-03-07 16:39 | PROG NOTE ---
[address] [address] PROGRESS NOTE PATIENT: EVE SAWYER : 1930 MR#: [id number] ADMIT: 03/06/2017 JOB ID: [id number] DATE: 03/07/2017 SUBJECTIVE: The patient is being seen today per request of the hospitalist service to evaluate whether he has recurrent lymphoma. The patient was admitted to [facility] on March 06, 2017, with a chief complaint of acute abdominal pain and vomiting. Symptoms came on quickly within 24 hours. The patient had developed pain which he localizes to the right lower quadrant of the abdomen, which progressed to diffuse abdominal discomfort. That night, he also had 3-4 episodes of vomiting with what appeared to be "clotted blood." Antecedent to the acute GI symptoms, he had been in his usual good state of health without any worrisome symptoms, denying any fevers, chills, fatigue, night sweats, unexplained weight loss or abdominal discomfort, diarrhea, rectal pain or blood. Initial workup at [facility] Emergency Department with vital signs reporting a temperature of 36.7, pulse 69, blood pressure of 133/65, and he was satting at 97%, room air. Admission labs reporting a white blood cell count of 8.3 with 90% neutrophils, hemoglobin 14.5, hematocrit 44.5, platelet count 132. CMP showing a normal serum creatinine and electrolytes. Admitting CT scan of the abdomen, dated March 06, 2017. reporting segmental wall thickening of the sigmoid colon consistent with a nonspecific colitis. Fluid distention of the colon proximal to the segment also reported. There was also distention of the distal small bowel compatible with a functional obstruction. A short segment stricture within a small bowel segment was also identified. Patient was subsequently admitted with a diagnosis of partial small bowel obstruction. Placed on NPO with surgical consult. Since being in the hospital, the patient's clinical status has moderately improve. He is now able to drink clear liquids. He has had improvement in the abdominal pain and he has had no further episodes of emesis. He also denies any fevers or chills. The patient was seen by Dr. Rowland this morning, who is recommending conservative monitoring at this time. No urgent surgical intervention is planned. PAST MEDICAL HISTORY: Significant for: 1. 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 Diagnosis confirmed on April 18, 2015, from cecal mass biopsy. Immunostains positive for CD 10, CD 20 diffuse large B-cell lymphoma. FISH was negative for translocation BCL2, BCL6, MYC. The above phenotype consistent with a nondouble hit, germinal center B-cell type lymphoma, with a cell of origin consistent with a germinal center B-cell type (good prognosis). The patient clinically presented in 2014, with approximately one week of right lower quadrant pain without associated B symptoms. The patient was treated with standard R-CHOP chemotherapy under the supervision of Dr. Ladd, last administered in August 2015 with complete radiologic remission. Treatment consolidated with Radiation to the right lower quadrant. Patient has been in remission/surveillence since. His most recent colonoscopy with Dr. Rowland in November 2016 showing no evidence of visible or pathologically recurrent disease, although Dr. Rowland was unable to intubate the terminal ileum. 2. Seizure disorder. 3. Stroke with residual expressive dysarthria. 4. Hypertension. 5. Hyperlipidemia. PHYSICAL EXAMINATION: Vital signs today reporting a weight of 68.18 kg which is stable over the past six months. Blood pressure 143/83, T-max over the past 24 hours 36.9, pulse 72, respiratory rate 16. He is saturating at 98%, room air. He is AO x3. Sitting up in bed in good spirits overall. Does not appear septic. No cachexia. Abdomen was slightly distended but nontender. Lower extremities without swelling or edema. LABORATORY DATA: From March 07, 2017, showing a white cell count of 4.2, hemoglobin 11.7, platelet count of 122. Sodium 146, potassium 4, serum creatinine 0.62. Calcium 8.3. AST 16, ALT 10. Alk phos 83. ASSESSMENT AND PLAN: The patient is a very pleasant, 86-year-old male with an underlying diagnosis of diffuse large B-cell lymphoma; germinal center B-cell type, non double hit mutation. In clinical remission for the past 19 month. The patient is status post six cycles of R-CHOP chemotherapy, last administered in August 2015, followed by consolidative radiation to the right lower quadrant in November 2015. This is a good prognostic subtype of DLBCL which responds well to standard R-CHOP therapy (5-yr PFS with this subtype on Diffuse Large B Cell Lymphoma is ~70-80%). Patient presents acutely within the past 48 hours with symptoms including bloody emesis, right lower quadrant abdominal pain, and CT scan findings showing distention of the small bowel and thickening of the sigmoid colon. The above clinical picture is more consistent with chronic radiation enteropathy , likely causing a functional small bowel obstruction. No measurable mass to suggest recurrent lymphoma. At this time, would agree with surgical recommendations - conservative monitoring, advance diet as tolerated. Of note, medical oncology would need a tissue diagnosis to confirm a relapse before any further systemic treatments. RECOMMENDATIONS: Continue with surgical and hospitalist monitoring. The patient does state that [facility] allows him to have a PET scan in-house. Will leave this up to surgery and hospitalist to decide whether a PET-CT scan in this setting would be of benefit. MTDD
[2017-03-07] MEDS: Pantoprazole 40 mg ER24 Tablet PO SCH (17:45)
[2017-03-07 20:30] VITALS: BP 153/95; PULSE 70; RESP 20; O2SAT 98
--- NOTE | 2017-03-07 22:42 | PCM.PNMED ---
Subjective Date of Service Mar 07, 2017 Subjective Patient has no new complaints. However, he has had nothing to eat since admission. He has had no nausea or vomiting or abdominal pain Exam Vital Signs Vital Sign - Last Date Time Temp Pulse Resp B/P Pulse Ox O2 Delivery O2 Flow Rate FiO2 03/07/17 20:30 36.9 70 20 153/95 98 Room Air Intake and Output 03/06/17 03/06/17 03/07/17 Cumulative From/Thru 15:00 23:00 07:00 03/06/17 11:54 - 03/07/17 05:59 Intake Total 999 ml 1137 ml 2136 ml Output Total 1850 ml 1850 ml Balance 999 ml -713 ml 286 ml Intake Oral 0 ml 0 ml IV Total 999 ml 1137 ml 2136 ml Output Urine Total 1850 ml 1850 ml # Bowel Movements 0 0 Exam General: No acute distress, well-developed, well-nourished, appropriately interactive HEENT: Normocephalic, atraumatic. External ears without defect. Pupils equal, round, and reactive to light and accommodation. Anicteric sclerae, moist conjunctivae, and no lid lag. Oropharynx free of erythema and cobble stoning with moist mucosa. Neck: Supple with full range of motion. No jugular venous distension. No lymphadenopathy or thyromegaly. Cardiovascular: Regular rate and rhythm with a grade 1/6 diastolic murmur appreciated. Pulmonary: Clear to auscultation bilaterally with no crackles, wheezes, or rhonchi. Normal respiratory effort with no use of accessory muscles. Abdomen: Bowel tones present. Soft, nontender, nondistended. No hepatosplenomegaly or masses appreciated. Extremities: No clubbing, cyanosis, edema, or lymphadenopathy appreciated. He has a hammertoe on the right foot Skin: Normal temperature, turgor, and texture; no rash, ulcers, or subcutaneous nodules appreciated. Neurological: Cranial nerves grossly intact. Normal muscle strength, tone, and bulk. Psychiatric: Normal mood and affect. Alert and oriented to person, place, and time. Slow to answer questions. Lab and Diagnostics Result Diagram: 03/07/1747 03/07/1747 Microbiology Blood cultures are negative at 24 hours. X-Rays, CTs and MRIs CT ABDOMEN AND PELVIS WITH CONTRAST IMPRESSION: 1. Segmental wall thickening of the sigmoid colon consistent with a nonspecific colitis, likely infectious or inflammatory in etiology. 2. Fluid distention of the colon proximal to this segment as well as distention of the distal small bowel compatible with a functional obstruction. A short segment stricture within the involved small bowel segment raises the possibility of inflammatory bowel disease. ADDENDUM: Given the length of segmental wall thickening in the sigmoid colon, and neoplasm is less likely but cannot be excluded due to the degree of obstruction. Consider followup evaluation with colonoscopy. Dictated by: Dontrell Beard M.D. 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 # Functional obstruction of the sigmoid colon with associated colitis, present on admission, active -Differential includes infectious etiology as well as a recurrent neoplasm -Was given a dose of Zosyn in the ER for presumed infection however patient is afebrile, has a normal white count, and a negative for procalcitonin, so at this time we will not continue antibiotics. -We will continue IV fluids -Dr. 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 He recommends no surgical intervention at this time. He recommended clear liquid diet to start. - Dr. Jose saw the patient in consultation for oncology and agrees with the above plan # Possible upper GI bleed, present on admission, active -Continue To monitor H&H -Continue Protonix twice a day, will change from IV to by mouth -Consider GI consultation tomorrow if there is any evidence of GI bleeding. Seizure disorder, present on admission, active -Convert Dilantin to fosphenytoin patient is nothing by mouth. Patient tolerates by mouth diet will change to Dilantin by mouth Disposition: Patient will likely be here another 24-48 hours for the evaluation and treatment of the above problems. Appreciate surgery and oncology consultations. Pain Evaluation: Adequate Pain Control GI Prophylaxis: Proton Pump Inhibitor VTE Prophylaxis: Sub-Q Heparin (Unfractionated) VTE Mechanical Devices: Intermittant Pneumatic CD Resuscitation Status: DNR/DNI:Do Not Resuscitate/Intubate Varun So MD Mar 07, 2017 22:42
[2017-03-08] MEDS: SODIUM CHLORIDE IV SCH ×6 (00:45→09:10)
[2017-03-08] MEDS: FOSPHENYTOIN IV SCH ×6 (00:45→09:10)
--- NOTE | 2017-03-08 04:36 | NUR ---
Activity Pt tolerating clear liquids overnight. Pt overall reports "feeling much better" Denies pain and is passing gas. Pt up independently to walk halls, steady on feet.
[2017-03-08 05:20] VITALS: BP 138/76; PULSE 78; RESP 18; O2SAT 98
[2017-03-08 06:13] LABS: BASOPHILS % (AUTO) 0.2 % (0-3); EOSINOPHILS % (AUTO) 2.3 % (0-5); MONOCYTES % (AUTO) 12.5 % (4-12); Mean Corpuscular Hemoglobin 32.3 pg (27.0-35.0); Mean Corpuscular Volume 100.8 fL (81-100); NEUTROPHILS % (AUTO) 64.4 % (40-74); Platelet Count 126 bil/L (150-400)
[2017-03-08] MEDS: Pantoprazole 40 mg ER24 Tablet PO SCH (07:40)
[2017-03-08] MEDS: 0.9% Sodium Chloride 1,000 ML IV SCH (09:42)
--- NOTE | 2017-03-08 09:52 | PROG NOTE ---
[address] [address] PROGRESS NOTE PATIENT: EVE SAWYER : 1930 MR#: [id number] ADMIT: 03/06/2017 JOB ID: [id number] DATE: 03/08/2017 SUBJECTIVE: The patient is seen in follow up. He feels much better today. He had a large bowel movement last night and is passing some flatus. He has no nausea. He is hungry. OBJECTIVE: Temperature 36.4, pulse 78, blood pressure 138/76, saturation 98% on room air. In general, he is sitting up, in no acute distress. Abdomen is soft, nontender, nondistended. LABORATORIES: White count is 4.3, hematocrit 38.7. Creatinine 0.72, albumin 3.7. 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 I see no indication for surgical intervention. He was seen by Dr. Jose yesterday from Medical Oncology who suggested that a PET-CT in the outpatient setting might be of benefit to look for evidence of recurrence of his lymphoma. I think that would be a good idea after he has been discharged from the hospital. His diet can be advanced and General Surgery will sign off.
--- NOTE | 2017-03-08 11:30 | NUR ---
Social Work: Initial Assessment/Readiness for Discharge/Multi-Disciplinary Rounds D: EMR reviewed. Pt is an 86 y/o male admitted for colitis, bowel obstruction per H&P. SW met with pt at bedside to conduct initial assessment. Pt was alert and oriented x3. SW explained role and wrote phone number on white board. SW provided "Your Discharge Planning Checklist" and encouraged pt to review and call SW for any discharge planning questions. SW provided DPOA/advanced directive ppw and encouraged pt to provide a copy to the hospital once complete. Pt's insurance is Medicare and [facility] Supplemental. PCP is Thomas Galvan MD. Pt gave verbal consent to contact spouse, Mandi Carnes [phone] for discharge planning. Pt does not own or use any DME. Pt is independent with ADLs. Pt drives. Pt is independent at baseline. Pt lives with spouse in a single-story, level home in [facility] [place]. Pt stated his spouse will provide transport home via POV at time of discharge. Per MD in AM rounds, pt is medically stable and likely to discharge today. MD/RN did not identify any SW discharge needs. SW did not identify any discharge needs. Based on assessment and multi-disciplinary rounds, SW does not have any concerns regarding pt's capacity for self-care once discharged. A: Pt who is independent at baseline. P: Pt stated his spouse will provide transport home via POV at time of discharge. MD/RN did not identify any SW discharge needs. SW did not identify any discharge needs. Based on assessment and multi-disciplinary rounds, SW does not have any concerns regarding pt's capacity for self-care once discharged. SW will continue to follow. Addendum: 03/08/17 at 1352 by BRADLEY CRAFT Amended: Links added.
[2017-03-08 11:54] VITALS: BP 163/81; PULSE 67; RESP 16; O2SAT 96
--- NOTE | 2017-03-08 13:31 | PCM.DIMED ---
Discharge Instructions Date of Service Mar 08, 2017 Dates of Hospitalization Mar 06, 2017 at 17:28 Discharge Diagnosis Discharge Diagnosis History of B-cell lymphoma with radiation enteritis Diet Discharge Diet: No restrictions (The patient may advance diet to his usual diet gradually as tolerated.) Activity Discharge Activity: No restrictions (The patient may gradually increase activity as tolerated.) Call your provider Call your provider for: Fever or Chills, Shortness of breath, Bleeding, Chest pain, Vomitting, Excessive diarrhea, Weakness (unilateral) Patient Instructions Follow-up Provider: Thomas Galvan MD Follow-up with PCP in: 1 week Provider: Oumar Jose DO Follow-up in: 1 week Varun So MD Mar 08, 2017 13:31
--- NOTE | 2017-03-08 13:40 | CCS NOTE ---
[facility] [address], [address] [address] MEDICAL ONCOLOGY OFFICE NOTE PATIENT: EVE SAWYER : 1930 MR#: [id number] DATE: 03/06/2017 JOB ID: [id number] DATE: 03/08/2017 SUBJECTIVE: The patient is being seen today for evaluation of his partial small bowel obstruction. Over the past 24 hours, the patient's clinical status has improved dramatically. He has had a formed bowel movement. He is tolerating fluids without difficulty and states that his abdominal discomfort has resolved. In addition, he has had no further nausea or vomiting episodes. PHYSICAL EXAMINATION: Vital signs showing a blood pressure of 138/76, T-max of 36.9, satting at 98% on room air. He is AO x3. He is sitting up in bed in good spirits. Affect is appropriate. Abdomen was nondistended and nontender with deep palpation in the right lower quadrant. LABORATORY DATA: From March 08, 2017, showing a white cell count of 4.3, with 64% neutrophils, hemoglobin 12.4, platelet count 126. CMP showing a normal serum creatinine and electrolytes and liver tests No additional imaging studies over the past 24 hours. ASSESSMENT AND PLAN: The patient is a very pleasant, 86-year-old male, 19 months out from his treatment for his diffuse large B-cell lymphoma, obtaining a radiologic complete response. Patient's acute presentation of partial obstruction clinically is resolving. The patient's presentation unlikely due to relapsed diffuse large B-cell lymphoma. On-call Medical Oncology will sign off at this time. The patient will follow up with Dr. Ladd later in the week.
--- NOTE | 2017-03-08 14:34 | NUR ---
Social Work: Discharge D: EMR reviewed. Pt is on day 2 of hospitalization. Per MD in AM rounds, pt is medically stable and likely to discharge today. MD/RN did not identify any SW discharge needs. SW did not identify any discharge needs. Based on assessment and multi-disciplinary rounds, SW does not have any concerns regarding pt's capacity for self-care once discharged. Pt stated his spouse will provide transport home via POV at time of discharge. A: Pt who is independent at baseline. P: Pt stated his spouse will provide transport home via POV at time of discharge. MD/RN did not identify any SW discharge needs. SW did not identify any discharge needs. Based on assessment and multi-disciplinary rounds, SW does not have any concerns regarding pt's capacity for self-care once discharged. SW will continue to follow. RAFA Aldridge
--- NOTE | 2017-03-08 15:45 | NUR ---
Discharge Pt discharged to home with spouse via private vehicle at 1535 hrs. PIV removed intact. VSS. No c/o pain. All personal possessions sent with pt. RN gave medication instructions regarding IV fosphenytoin that pt received this a.m. It's okay for pt to take his dilantin later today per pharmacist. Pt advised to follow up with his PCP and the oncologist in 1 week. Pt expressed understanding and had no additional questions.
--- NOTE | 2017-03-08 23:46 | PCM.DC.MED ---
Discharge Summary Date of Service Mar 08, 2017 Dates of Hospitalization Date of Hospital Admission Mar 06, 2017 at 17:28 Date of Discharge: Mar 08, 2017 Providers: Admitting Physician: Varun So MD Primary Care Physician: Thomas Galvan MD Attending Physician: Varun So MD Diagnosis at Time of Discharge Diagnosis at Time of Discharge History of B-cell lymphoma with radiation enteritis Consultations Dr. Rowland of general surgery and Dr. Jose of oncology. Procedures XRay, CTs & MRIs CT ABDOMEN AND PELVIS WITH CONTRAST IMPRESSION: 1. Segmental wall thickening of the sigmoid colon consistent with a nonspecific colitis, likely infectious or inflammatory in etiology. 2. Fluid distention of the colon proximal to this segment as well as distention of the distal small bowel compatible with a functional obstruction. A short segment stricture within the involved small bowel segment raises the possibility of inflammatory bowel disease. ADDENDUM: Given the length of segmental wall thickening in the sigmoid colon, and neoplasm is less likely but cannot be excluded due to the degree of obstruction. Consider followup evaluation with colonoscopy. Dictated by: Dontrell Beard M.D. 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 Patient states that he has had 4 episodes of emesis [id number] and all of them contained "chunks of blood." The patient denies any diarrhea, melena, hematochezia, fevers or chills. He has not had any episodes of emesis since this morning. The patient denies any dizziness or chest pain. The patient most recently saw his oncologist Dr. Ladd last month for continue surveillance of his lymphoma. Patient had previously underwent a CT scan in July 2016. He had a repeat colonoscopy a couple months ago by Dr. Rowland. There was no significant abnormality, but the terminal ileum could not be accessed. The biopsies from the cecum were negative. The plan was to repeat CT of chest abdomen and pelvis this month for ongoing surveillance. In the ED the patient's vitals were notable for 164/85. CT of his abdomen was notable for colitis. He was given Zosyn, given 1 L of NS, 80 mg of IV Protonix push, and Zofran. The patient was then admitted to the hospitalist service for further evaluation and treatment. 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 # Functional obstruction of the sigmoid colon with associated colitis, present on admission, resolved -And had a large bowel movement today -Differential includes infectious etiology as well as a recurrent neoplasm versus radiation enteritis. Both Dr. Jose and Dr. Rowland believes it was due to radiation enteritis. -Was given a dose of Zosyn in the ER for presumed infection however patient is afebrile, has a normal white count, and a negative for procalcitonin, so at this time we will not continue antibiotics. -We will continue IV fluids -Dr. 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 He recommends no surgical intervention at this time. He recommended clear liquid diet to start. - Dr. oJse saw the patient in consultation for oncology and agrees with the above plan # Possible upper GI bleed, present on admission, resolved -H&H is stable -She was treated with Protonix twice a day, which we changed from IV to by mouth # Seizure disorder, present on admission, active -We converted Dilantin to fosphenytoin while patient is nothing by mouth. Patient tolerates by mouth diet will change to Dilantin by mouth Disposition: Patient is now eating and having normal bowel movements. He will be discharged home today Appreciate surgery and oncology consultations. Exam Vital Signs (Last) Date Time Temp Pulse Resp B/P Pulse Ox O2 Delivery O2 Flow Rate FiO2 03/08/17 11:54 36.5 67 16 163/81 96 Room Air Exam General: No acute distress, well-developed, well-nourished, appropriately interactive HEENT: Normocephalic, atraumatic. External ears without defect. Pupils equal, round, and reactive to light and accommodation. Anicteric sclerae, moist conjunctivae, and no lid lag. Oropharynx free of erythema and cobble stoning with moist mucosa. Neck: Supple with full range of motion. No jugular venous distension. No lymphadenopathy or thyromegaly. Cardiovascular: Regular rate and rhythm with a grade 1/6 diastolic murmur appreciated. Pulmonary: Clear to auscultation bilaterally with no crackles, wheezes, or rhonchi. Normal respiratory effort with no use of accessory muscles. Abdomen: Bowel tones present. Soft, nontender, nondistended. No hepatosplenomegaly or masses appreciated. Extremities: No clubbing, cyanosis, edema, or lymphadenopathy appreciated. He has a hammertoe on the right foot Skin: Normal temperature, turgor, and texture; no rash, ulcers, or subcutaneous nodules appreciated. Neurological: Cranial nerves grossly intact. Normal muscle strength, tone, and bulk. Psychiatric: Normal mood and affect. Alert and oriented to person, place, and time. Slow to answer questions. Test 03/06/17 12:50 03/07/17 08:47 03/08/17 05:28 Prothrombin Time 10.6sec (8.1-12.5) Prothromb Time International Ratio 0.99ratio Procalcitonin 0.06ng/mL (0.00-0.08) Phenytoin (Dilantin) Level 8.1uG/mL (10.0-20.0) Urine Color Straw (YELLOW) Urine Appearance Clear (CLEAR,HAZY) Urine pH 6.0 (5.0-8.0) Urine Specific [place] 1.010 (1.003-1.035) Urine Protein Negativemg/dL (NEG,TRACE) Urine Glucose (UA) Negativemg/dL (NEGATIVE) Urine Ketones Negativemg/dL (NEGATIVE) Urine Occult Blood Large (NEGATIVE) Urine Nitrite Negative (NEGATIVE) Urine Bilirubin Negative (NEGATIVE) Urine Urobilinogen Normalmg/dL (NORMAL) Urine Leukocyte Esterase Negative (NEGATIVE) Urine RBC >50/hpf (0-2) Urine WBC 0-5/hpf (0-5) Urine Epithelial Cells Few/hpf (NONE-MOD) Urine Crystals None seen (NONE SEEN) Urine Bacteria None/hpf (NONE-FEW) Urine Hyaline Casts None/lpf (NONE) Urine Granular Casts None seen (NONE SEEN) Urine Waxy Casts None seen (NONE SEEN) Urine Red Blood Cell Casts None seen (NONE SEEN) Urine White Blood Cell Casts None seen (NONE SEEN) Urine Mucus None seen (None Seen) Urine Trichomonas None seen (NONE SEEN) Urine Yeast None (NONE SEEN) Urinalysis Comment None Urine Culture Reflexed Not indicated White Blood Count 4.3th/mm3 (3.8-10.1) Red Blood Count 3.84mil/mm3 (4.40-5.80) Hemoglobin 12.4g/dL (13.8-17.2) Hematocrit 38.7% (41.0-50.0) Mean Corpuscular Volume 100.8fL (81-100) Mean Corpuscular Hemoglobin 32.3pg (27.0-35.0) Mean Corpuscular Hemoglobin Concent 32.0% (32.0-37.0) Red Cell Distribution Width 13.7% (12.3-15.4) Platelet Count 126bil/L (150-400) Neutrophils (%) (Auto) 64.4% (40-74) Lymphocytes (%) (Auto) 20.6% (14-46) Monocytes (%) (Auto) 12.5% (4-12) Eosinophils (%) (Auto) 2.3% (0-5) Basophils (%) (Auto) 0.2% (0-3) Sodium Level 142mEq/L (134-144) Potassium Level 3.8mEq/L (3.5-5.2) Chloride Level 104mEq/L (97-108) Carbon Dioxide Level 25mmol/L (18-29) Blood Urea Nitrogen 9mg/dL (8-27) Creatinine 0.72mg/dL (0.76-1.27) Estimat Glomerular Filtration Rate 111mL/min (>59) Glucose Level 94mg/dL (60-99) Calcium Level 8.8mg/dL (8.5-10.1) Magnesium Level 2.0mg/dL (1.6-2.6) Total Bilirubin 0.3mg/dL (0.0-1.2) Aspartate Amino Transf (AST/SGOT) 20U/L (0-50) Alanine Aminotransferase (ALT/SGPT) 11U/L (0-44) Alkaline Phosphatase 88U/L (25-160) Total Protein 5.8g/dL (6.4-8.4) Albumin 3.7g/dL (3.4-5.0) Microbiology Results Blood cultures are negative at 24 hours. Discharge Medications Discharge Medications Aspirin (Aspirin) 81 Mg Tablet 81 MG PO DAILY (Reported) Ca Cmb 1/Vit D3/B-6/FA/B12/Av (Vitamin D3-Aloe 1,000 Unit Tab) 1 Each Tablet 1 EACH PO DAILY (Reported) Calcium Carbonate (Calcium) 600 Mg Tablet 600 MG PO DAILY (Reported) Finasteride (Finasteride) 5 Mg Tablet 5 MG PO DAILY (Reported) Lisinopril (Lisinopril) 20 Mg Tablet 20 MG PO DAILY (Reported) Phenytoin Sodium ER (Dilantin) 100 Mg Capsule 300 MG PO DAILY (Reported) Followup Plan Disposition: Patient is being discharged home. Discharge Diet: No restrictions (The patient may advance diet to his usual diet gradually as tolerated.) Discharge Activity: No restrictions (The patient may gradually increase activity as tolerated.) Follow-up Provider: Thomas Galvan MD Follow-up with PCP in: 1 week Provider: Oumar Jose DO Follow-up in: 1 week Time spent Time spent on discharging this patient was greater than 35 minutes, over half of which was involved in counseling and coordination of care. Varun So MD Mar 08, 2017 23:46
== END 2017-03-08 15:35 | disposition home or self-care (01) | DRG 394 ==
LOC: SED 11:50 → OSC 17:28
PROVIDERS: ADMIT Internal Medicine Infectious Disease; ATTEND Internal Medicine Infectious Disease
DX: K52.0 Gastroenteritis and colitis due to radiation (principal); K56.69 Other intestinal obstruction; K92.2 Gastrointestinal hemorrhage, unspecified; G40.909 Epilepsy, unspecified, not intractable, without status epilepticus; I69.322 Dysarthria following cerebral infarction; I10 Essential (primary) hypertension; E78.5 Hyperlipidemia, unspecified; Z87.891 Personal history of nicotine dependence; Z85.038 Personal history of other malignant neoplasm of large intestine